=== PATIENT | male | born 1960 | race Caucasian/White ===

== ENCOUNTER 2018-07-31 15:05 | Emergency (ER) | payer MEDICAID ==
[~2018-07-31] VITALS: Ht 170.2 cm; Wt 63.0 kg
--- NOTE | 2018-07-31 15:15 | NUR ---
PT VICKI FROM [facility] FOR SUPRAPUBIC CATH MALFUNCTION; PT AAOX2-3, PT ON MONITOR, VSS, NAD NOTED, PENDING ER PROVIDER SINDHU
[2018-07-31] MEDS ORDERED: HYDROCODONE/APAP 5/325MG 1 EACH TABLET ONE (15:41)
[2018-07-31] MEDS ORDERED: HYDROCODONE/APAP 5/325MG 1 EACH TABLET PO ONE (16:00)
[2018-07-31 17:05] LABS: APPEARANCE,URINE Clear (CLEAR); BILIRUBIN,URINE Negative (NEGATIVE); BLOOD, URINE Large Ery/uL (NEGATIVE); COLOR,URINE Pink (YELLOW); KETONES,URINE Negative (NEGATIVE); LEUKOCYTE ESTERASE ,URINE Moderate (NEGATIVE); NITRITE, URINE Negative (NEGATIVE); PROTEIN,URINE 30 mg/dl (NEGATIVE); UGLUCOSE Negative (NEGATIVE); UROBILINOGEN,URINE 0.2 EU/dL (0.2)
[2018-07-31 17:32] LABS: BACTERIA,URINE Few /HPF (None Seen); SQUAMOUS EPITHELIAL CELL,UR Few /HPF (None Seen)
[2018-07-31 20:02] LABS: BASOPHILS # (AUTO) 0.1 /CMM (0.0-0.2); BASOPHILS % (AUTO) 0.8 % (0.0-2.0); EOSINOPHILS % (AUTO) 4.1 % (0.0-6.0); HEMATOCRIT 40 % (39-51); LYMPHOCYTES # (AUTO) 1.9 /CMM (0.8-4.8); LYMPHOCYTES % (AUTO) 25.4 % (20.0-44.0); MEAN CORPUSCULAR HGB CONC 33 g/dl (31.0-36.0); MEAN CORPUSCULAR VOLUME 87 fL (80-96); MONOCYTES # (AUTO) 0.8 /CMM (0.1-1.30); MONOCYTES % (AUTO) 10.7 % (2.0-12.0); NEUTROPHILS # (AUTO) 4.5 /CMM (1.8-8.9); PLATELET COUNT (AUTO) 339 /CMM (150-450); RED BLOOD CELL COUNT(AUTO) 4.57 MIL/uL (4.5-6.0); WHITE BLOOD COUNT (AUTO) 7.7 K/uL (4.3-11.0)
[2018-07-31 20:04] VITALS: BP 112/75
[2018-07-31 20:14] LABS: CALCIUM, SERUM 9.1 mg/dL (8.5-10.1); POTASSIUM 4.3 mmol/L (3.5-5.1)
--- NOTE | 2018-07-31 20:31 | NUR ---
CALLED [facility] FOR REPORT, SPOKE TO CYNDIE AWARE OF PT'S D/C. WILL CALL FOR TRANSPORT.
--- NOTE | 2018-07-31 20:38 | NUR ---
[facility] CALLED FOR [facility]. TRIP [phone]. ETA IS 1.5 HOURS
--- NOTE | 2018-07-31 22:28 | NUR ---
PT LEFT [facility];LEFT IN STABLE CONDTION ALL PPW WITH AMBULANCE STAFF.
== END 2018-07-31 22:29 | disposition home or self-care (01) ==
LOC: ER 15:08
DX: N39.0 Urinary tract infection, site not specified (principal); Z46.6 Encounter for fitting and adjustment of urinary device; G40.909 Epilepsy, unspecified, not intractable, without status epilepticus; F03.90 Unspecified dementia, unspecified severity, without behavioral disturbance, psychotic disturbance, mood disturbance, and anxiety
CPT/HCPCS: 36415; 80048; 81001; 85025; 87086; 99283; A4606; 81000-TC

== ENCOUNTER 2018-08-01 13:03 | Emergency (ER) | payer MEDICAID ==
[~2018-08-01] VITALS: Ht 165.1 cm; Wt 60.8 kg
[2018-08-01 14:36] VITALS: BP 103/74
--- NOTE | 2018-08-01 14:36 | NUR ---
Patient discharged to SNF via BLS ambulance in stable condition. Written and verbal after care instructions given. Patient verbalizes understanding of instruction.
== END 2018-08-01 14:38 ==
LOC: ER 13:10
DX: T83.091A Other mechanical complication of indwelling urethral catheter, initial encounter (principal); G40.909 Epilepsy, unspecified, not intractable, without status epilepticus; F03.90 Unspecified dementia, unspecified severity, without behavioral disturbance, psychotic disturbance, mood disturbance, and anxiety
CPT/HCPCS: 99284; A4606

== ENCOUNTER 2019-01-26 22:33 | Emergency (ER) | payer MEDICAID ==
[2019-01-26] MEDS ORDERED: ONDANSETRON HCL/PF 4 MG/2 ML VIAL ONE (23:15)
[2019-01-26] MEDS ORDERED: HYDROMORPHONE 1 MG/1 ML DISP.SYRIN ONE (23:15)
[2019-01-26] MEDS ORDERED: ONDANSETRON HCL/PF 4 MG/2 ML VIAL IVP ONE (23:30)
[2019-01-26] MEDS ORDERED: HYDROMORPHONE INJ 2 MG/ML DISP.SYRIN IV ONE (23:30)
[2019-01-26] MEDS ORDERED: CEFTRIAXONE 1 G in IV D5W 50 ML IV ONE (23:30)
[2019-01-27] MEDS ORDERED: CEFTRIAXONE 1GM BAG (ER ONLY) 50 ML IV ONE (00:16)
[2019-01-27] MEDS ORDERED: IV NS 0.9% 1,000 ML BAG IV ONE ×2 (00:30→01:00)
== END 2019-01-27 03:19 | disposition home or self-care (01) ==
DX: T83.198A Other mechanical complication of other urinary devices and implants, initial encounter (principal); N39.0 Urinary tract infection, site not specified; F03.90 Unspecified dementia, unspecified severity, without behavioral disturbance, psychotic disturbance, mood disturbance, and anxiety; G40.909 Epilepsy, unspecified, not intractable, without status epilepticus
CPT/HCPCS: 36415; 51705; 80048; 80076; 81001; 85025; 85730; 87077; 87086; 87186; 96365; 96375; 99284; J0696 ×2; J1170; J2405; J7030; J7060